=== PATIENT | female | born 1930 | race African-American/Black ===

== ENCOUNTER 2018-09-28 15:59 | Inpatient (IN) ==
[2018-09-28 18:52] LABS: Basophils % 0.1 % (0.0-0.8); Eosinophils # 0.1 10*3/uL (0.0-0.87); Eosinophils % 0.7 % (0.00-10.9); Immature Granulocytes % 0.5 %; Immature Granulocytes Absolute 0.04 #; Lymphocytes # 0.8 10*3/uL (1.4-4.0); Mean Corpuscular Hemoglobin 28 PG (27-34); Mean Corpuscular Volume 92.3 FL (87-102); Mean Platelet Volume 9.5 FL (9.6-12.0); Monocytes # 0.3 10*3/uL (0.11-0.8); Monocytes % 3.9 % (1.7-12.7); Neutrophils # 6.5 10*3/uL (1.4-7.4); Neutrophils % 84.8 % (38.7-73.9); Platelet Count 255 T/CUMM (130-400); Red Blood Count 1.95 MC/CUMM (3.8-5.5); Red Cell Distribution Width 14.5 % (9.3-17.3); White Blood Count 7.7 T/CUMM (4-12)
[2018-09-28 18:56] LABS: Hemoglobin 5.4 GM/DL (12.0-16.0)
[2018-09-28 19:00] LABS: PT Patient Result 11.3 SECS
[2018-09-28 19:10] LABS: Alanine Aminotransferase 16 U/L (13-56); Albumin 2.9 G/DL (3.4-5.0); Alkaline Phosphatase 58 U/L (45-117); Aspartate Amino Transferase 14 U/L (0-37); Bilirubin,Total < 0.39 MG/DL (0.2-1.0); Blood Urea Nitrogen 82 MG/DL (7-18); Glucose 97 MG/DL (74-106); Osmolality,Calculated 301.5 MOS/KG (273-304); Sodium 139 MMOL/L (136-145); Total Protein 6.7 G/DL (6.4-8.3)
[2018-09-28 19:13] LABS: Potassium 6.2 MMOL/L (3.5-5.1)
[2018-09-28] MEDS ORDERED: DEXTROSE 50% 25 GM/50 ML VIAL IV STA (19:20)
[2018-09-28] MEDS ORDERED: ALBUTEROL NEB SOLN 5 MG/ML 20 ML/BOTTLE CONT NEB STA (19:20)
[2018-09-28] MEDS ORDERED: CALCIUM CHLORIDE 1,000 MG/10 ML SYRINGE IV STA (19:20)
[2018-09-28] MEDS ORDERED: INSULIN REGULAR 100 UNIT/ML IV STA (19:21)
[2018-09-28] MEDS ORDERED: ONDANSETRON 4 MG/2 ML VIAL IV STA (19:26)
[2018-09-28 19:45] LABS: Troponin I < 0.015 NG/ML (0.00-0.045)
[2018-09-28] MEDS ORDERED: DEXTROSE 50% 25 GM/50 ML SYRINGE IV ONE (20:00)
[2018-09-28] MEDS ORDERED: SODIUM BICARBONATE 50 MEQ/50 ML SYRINGE IV ONE (20:07)
[2018-09-28] MEDS: SODIUM BICARB INJ 50 MEQ in DEXTROSE 5% 1,000 ML IV SCH (20:18)
[2018-09-28] MEDS ORDERED: ONDANSETRON 4 MG/2 ML VIAL IV PRN (20:53)
[2018-09-28] MEDS ORDERED: ACETAMINOPHEN 325 MG TABLET PO PRN (20:53)
[2018-09-28] MEDS ORDERED: NICOTINE 21 MG/24 HR PATCH TRANSDERM PRN (20:53)
[2018-09-28] MEDS ORDERED: diphenhydrAMINE CAP 25 MG CAPSULE PO PRN (20:53)
[2018-09-28] MEDS ORDERED: guaiFENesin/DM ER 600-30 MG TABLET PO PRN (20:53)
[2018-09-28] MEDS ORDERED: BISACODYL 5 MG TABLET PO PRN (20:53)
[2018-09-28] MEDS ORDERED: MORPHINE 4 MG/1 ML VIAL IV PRN (20:53)
[2018-09-28 21:50] LABS: Thyroid Stimulating Hormone 1.53 uIU/ml (0.358-3.74)
[2018-09-28 21:52] LABS: Folate > 24.0 NG/ML (5.4-24.0); Vitamin B12 1455 PG/ML (211-911)
[2018-09-28] MEDS: SODIUM CHLORIDE 0.9% 1,000 ML IV SCH (23:00)
[2018-09-28] MEDS: SODIUM POLYSTYRENE SULFATE 15 GM/60 ML BOTTLE PO SCH (23:01)
[2018-09-28 23:43] LABS: Basophils % 0.1 % (0.0-0.8); Eosinophils % 0.3 % (0.00-10.9); Immature Granulocytes % 0.7 %; Immature Granulocytes Absolute 0.05 #; Lymphocytes # 0.7 10*3/uL (1.4-4.0); Lymphocytes % 10.6 % (21.3-54.2); Mean Corpuscular HGB Conc 29.8 GM/DL (32-36); Mean Corpuscular Hemoglobin 28 PG (27-34); Mean Platelet Volume 10.1 FL (9.6-12.0); Monocytes # 0.3 10*3/uL (0.11-0.8); Monocytes % 4.8 % (1.7-12.7); Neutrophils # 5.7 10*3/uL (1.4-7.4); Neutrophils % 83.5 % (38.7-73.9); Platelet Count 236 T/CUMM (130-400); Red Blood Count 1.82 MC/CUMM (3.8-5.5); Red Cell Distribution Width 14.7 % (9.3-17.3); White Blood Count 6.9 T/CUMM (4-12)
[2018-09-28 23:51] LABS: Hematocrit 17.1 VOL% (35.7-47.0); Hemoglobin 5.1 GM/DL (12.0-16.0)
[2018-09-29 00:55] LABS: Sedimentation Rate-Westergren 114 MM/HR (0-30)
[2018-09-29] MEDS ORDERED: SODIUM CHLORIDE 0.9% 500 ML IV STA (01:53)
[2018-09-29 02:13] LABS: Platelet Estimate Adequate
[2018-09-29 02:15] LABS: Polychromasia Few
[2018-09-29] MEDS ORDERED: SODIUM CHLORIDE 0.9% 1,000 ML IV PRN (02:49)
[2018-09-29 04:40] LABS: Basophils % 0.2 % (0.0-0.8); Eosinophils % 0.6 % (0.00-10.9); Immature Granulocytes % 0.6 %; Immature Granulocytes Absolute 0.03 #; Lymphocytes # 0.6 10*3/uL (1.4-4.0); Lymphocytes % 12.3 % (21.3-54.2); Mean Corpuscular HGB Conc 30.5 GM/DL (32-36); Mean Corpuscular Hemoglobin 29 PG (27-34); Mean Corpuscular Volume 94.1 FL (87-102); Mean Platelet Volume 10.1 FL (9.6-12.0); Monocytes # 0.3 10*3/uL (0.11-0.8); Monocytes % 6.4 % (1.7-12.7); Neutrophils % 79.9 % (38.7-73.9); Platelet Count 225 T/CUMM (130-400); Red Blood Count 1.85 MC/CUMM (3.8-5.5); Red Cell Distribution Width 14.5 % (9.3-17.3)
[2018-09-29 04:43] LABS: Hemoglobin 5.3 GM/DL (12.0-16.0)
[2018-09-29 04:44] LABS: Hematocrit 17.4 VOL% (35.7-47.0)
[2018-09-29 05:00] LABS: Albumin 2.8 G/DL (3.4-5.0); Bilirubin,Total 0.4 MG/DL (0.2-1.0); Calcium 8.6 MG/DL (8.5-10.1); Osmolality,Calculated 306.3 MOS/KG (273-304); Total Protein 6.4 G/DL (6.4-8.3)
[2018-09-29] MEDS: SODIUM POLYSTYRENE SULFATE 15 GM/60 ML BOTTLE PO SCH ×2 (06:10→13:30)
[2018-09-29] MEDS: SODIUM BICARB INJ 50 MEQ in DEXTROSE 5% 1,000 ML IV SCH (06:17)
[2018-09-29 08:31] LABS: Hemoglobin A1 (Alkaline) 60.6 % (96.5-98.5); Hemoglobin A2 (Alkaline) 1.6 % (1.5-3.5)
[2018-09-29 08:55] LABS: Hemoglobin S (Alkaline) 37.8 %
[2018-09-29 10:14] LABS: Hematocrit 24.5 VOL% (35.7-47.0); Hemoglobin 7.4 GM/DL (12.0-16.0)
[2018-09-29] MEDS ORDERED: FUROSEMIDE 40 MG/4 ML VIAL IV ONE (12:15)
[2018-09-29] MEDS: SODIUM CHLORIDE 0.9% 1,000 ML IV SCH (13:30)
[2018-09-29] MEDS: PANTOPRAZOLE 40 MG TABLET PO SCH (13:31)
[2018-09-29] MEDS ORDERED: hydrALAZINE 10 MG TABLET PO PRN (15:15)
[2018-09-29] MEDS: amLODIPine 5 MG TABLET PO SCH (15:24)
[2018-09-29] MEDS: DOCUSATE/SENNA 50-8.6 MG TABLET PO SCH (20:35)
[2018-09-29 21:57] LABS: Hematocrit 32.5 VOL% (35.7-47.0); Hemoglobin 10.3 GM/DL (12.0-16.0)
[2018-09-30] MEDS: SODIUM CHLORIDE 0.9% 1,000 ML IV SCH (04:21)
[2018-09-30 05:02] LABS: Basophils % 0.4 % (0.0-0.8); Eosinophils # 0.2 10*3/uL (0.0-0.87); Hemoglobin 10.2 GM/DL (12.0-16.0); Immature Granulocytes % 0.4 %; Immature Granulocytes Absolute 0.02 #; Lymphocytes # 0.7 10*3/uL (1.4-4.0); Mean Corpuscular HGB Conc 31.9 GM/DL (32-36); Mean Corpuscular Hemoglobin 28 PG (27-34); Mean Corpuscular Volume 87.7 FL (87-102); Mean Platelet Volume 10.1 FL (9.6-12.0); Monocytes # 0.4 10*3/uL (0.11-0.8); Neutrophils # 3.8 10*3/uL (1.4-7.4); Neutrophils % 75.2 % (38.7-73.9); Platelet Count 192 T/CUMM (130-400); Red Blood Count 3.65 MC/CUMM (3.8-5.5); Red Cell Distribution Width 14.5 % (9.3-17.3)
[2018-09-30 05:21] LABS: Calcium 7.4 MG/DL (8.5-10.1); Osmolality,Calculated 294.3 MOS/KG (273-304); Potassium 4.8 MMOL/L (3.5-5.1)
[2018-09-30 07:47] VITALS: BP 142/70
[2018-09-30] MEDS ORDERED: POLYETHYLENE GLYCOL POWDER 17 GM PACK PO SCH (09:00)
[2018-09-30] MEDS: amLODIPine 5 MG TABLET PO SCH (09:10)
[2018-09-30] MEDS: DOCUSATE/SENNA 50-8.6 MG TABLET PO SCH (09:10)
[2018-09-30] MEDS: PANTOPRAZOLE 40 MG TABLET PO SCH (09:11)
== END 2018-09-30 13:08 | disposition home health service (06) | DRG 683 ==
LOC: N.ED 15:59 → N.EDINP 20:53 → N.TELES 09-29 09:29
PROVIDERS: ADMIT Internal Medicine; ATTEND Internal Medicine

== ENCOUNTER 2019-03-01 18:58 | Inpatient (IN) ==
[2019-03-01] MEDS ORDERED: DICYCLOMINE 20 MG/2 ML AMP IM ONE (19:24)
[2019-03-01 19:42] LABS: Basophils % 0.2 % (0.0-0.8); Eosinophils % 0.2 % (0.00-10.9); Hematocrit 21.8 VOL% (35.7-47.0); Hemoglobin 7.3 GM/DL (12.0-16.0); Immature Granulocytes % 0.2 %; Immature Granulocytes Absolute 0.01 #; Lymphocytes # 0.4 10*3/uL (1.4-4.0); Lymphocytes % 8.3 % (21.3-54.2); Mean Corpuscular HGB Conc 33.5 GM/DL (32-36); Mean Corpuscular Volume 90.1 FL (87-102); Mean Platelet Volume 9.6 FL (9.6-12.0); Neutrophils % 87.1 % (38.7-73.9); Platelet Count 141 T/CUMM (130-400); Red Blood Count 2.42 MC/CUMM (3.8-5.5)
[2019-03-01 20:02] LABS: Alanine Aminotransferase 13 U/L (13-56); Alkaline Phosphatase 59 U/L (45-117); Amylase 134 U/L (25-115); Aspartate Amino Transferase 18 U/L (0-37); Blood Urea Nitrogen 68 MG/DL (7-18); Estimated Glom Filtration Rate 9 ML/MIN; Glucose 107 MG/DL (74-106); Osmolality,Calculated 281.7 MOS/KG (273-304); Total Protein 7.6 G/DL (6.4-8.3); Troponin I < 0.015 NG/ML (0.00-0.045)
[2019-03-01] MEDS ORDERED: MORPHINE 4 MG/1 ML VIAL IV PRN (21:46)
[2019-03-01] MEDS ORDERED: NICOTINE 21 MG/24 HR PATCH TRANSDERM PRN (21:46)
[2019-03-01] MEDS ORDERED: diphenhydrAMINE CAP 25 MG CAPSULE PO PRN (21:46)
[2019-03-01] MEDS ORDERED: LATANOPROST RIGHT EYE SCH (22:43)
[2019-03-01] MEDS: SODIUM CHLORIDE 0.9% 1,000 ML IV SCH (23:08)
[2019-03-02] MEDS: DICYCLOMINE 20 MG/2 ML AMP IM SCH ×2 (00:12→05:46)
[2019-03-02 04:19] LABS: Basophils % 0.2 % (0.0-0.8); Hematocrit 19.7 VOL% (35.7-47.0); Hemoglobin 6.5 GM/DL (12.0-16.0); Immature Granulocytes % 0.2 %; Immature Granulocytes Absolute 0.01 #; Lymphocytes # 0.5 10*3/uL (1.4-4.0); Lymphocytes % 10.2 % (21.3-54.2); Mean Corpuscular Volume 89.5 FL (87-102); Mean Platelet Volume 9.8 FL (9.6-12.0); Monocytes % 8.7 % (1.7-12.7); Neutrophils % 80.7 % (38.7-73.9); Platelet Count 122 T/CUMM (130-400); White Blood Count 5.3 T/CUMM (4-12)
[2019-03-02 05:04] LABS: Albumin 3.4 G/DL (3.4-5.0); Bilirubin,Total 0.8 MG/DL (0.2-1.0); Calcium 8.6 MG/DL (8.5-10.1); Osmolality,Calculated 285.4 MOS/KG (273-304); Total Protein 6.3 G/DL (6.4-8.3)
[2019-03-02 05:55] LABS: % Iron Saturation 9.6 % (18-50); Ferritin 135.5 ng/ml (8-252)
[2019-03-02] MEDS ORDERED: DICYCLOMINE 10 MG CAPSULE PO SCH (06:00)
[2019-03-02] MEDS: SODIUM CHLORIDE 0.9% 1,000 ML IV SCH ×2 (08:36→18:34)
[2019-03-02] MEDS: amLODIPine 5 MG TABLET PO SCH (08:37)
[2019-03-02] MEDS: CYPROHEPTADINE 4 MG TABLET PO SCH ×3 (08:37→18:16)
[2019-03-02] MEDS: DICYCLOMINE 10 MG CAPSULE PO SCH ×3 (08:37→18:15)
[2019-03-02] MEDS: FAMOTIDINE 20 MG/2 ML VIAL IV SCH (08:38)
[2019-03-02] MEDS ORDERED: hydroCHLOROthiazide 12.5 MG CAPSULE PO SCH (09:00)
[2019-03-02] MEDS ORDERED: DONEPEZIL 5 MG TABLET PO SCH (09:00)
[2019-03-02] MEDS ORDERED: LACTULOSE 20 GM/30 ML UDCUP PO SCH (09:00)
[2019-03-02] MEDS ORDERED: Timolol Maleate [Timolol Maleate] 1 DROP RIGHT EYE SCH (09:00)
[2019-03-02] MEDS ORDERED: SODIUM CHLORIDE 0.9% 1,000 ML IV PRN (09:17)
[2019-03-02] MEDS ORDERED: DOCUSATE SODIUM 100 MG CAPSULE PO SCH (09:30)
[2019-03-02] MEDS: ONDANSETRON 4 MG/2 ML VIAL IV PRN ×2 (13:31→18:15)
[2019-03-02] MEDS ORDERED: POLYETHYLENE GLYCOL POWDER 17 GM PACK PO SCH (15:00)
[2019-03-02] MEDS ORDERED: METOCLOPRAMIDE 10 MG/2 ML VIAL IV PRN (18:41)
[2019-03-02] MEDS: BRIMONIDINE/TIMOLOL OPH SOLN 5 ML BOTTLE BOTH EYES SCH (20:21)
[2019-03-02] MEDS: CYCLOPENTOLATE 1% OPH SOLN 2 ML BOTTLE RIGHT EYE SCH (20:22)
[2019-03-02] MEDS: MEROPENEM 500 MG in SODIUM CHLORIDE 0.9% 100 ML IV SCH (20:22)
[2019-03-02] MEDS: prednisoLONE ACETATE 1% OPH SUSP 5 ML BOTTLE RIGHT EYE SCH (20:22)
[2019-03-02] MEDS: DEXT 5% NACL 0.45% KCL 20 MEQ 20 MEQ/1,000 ML BAG IV SCH (20:31)
[2019-03-02] MEDS: LATANOPROST 0.005% OPH SOLN 2.5 ML BOTTLE BOTH EYES SCH (20:49)
[2019-03-03 06:05] LABS: Basophils % 0.2 % (0.0-0.8); Eosinophils % 0.2 % (0.00-10.9); Hematocrit 25.4 VOL% (35.7-47.0); Hemoglobin 8.6 GM/DL (12.0-16.0); Immature Granulocytes % 0.3 %; Immature Granulocytes Absolute 0.02 #; Lymphocytes # 0.5 10*3/uL (1.4-4.0); Mean Corpuscular HGB Conc 33.9 GM/DL (32-36); Mean Corpuscular Volume 89.4 FL (87-102); Mean Platelet Volume 9.8 FL (9.6-12.0); Monocytes % 5.4 % (1.7-12.7); Neutrophils % 85.9 % (38.7-73.9); Platelet Count 117 T/CUMM (130-400); Red Blood Count 2.84 MC/CUMM (3.8-5.5); Red Cell Distribution Width 13.3 % (9.3-17.3); White Blood Count 6.5 T/CUMM (4-12)
[2019-03-03 06:21] LABS: Osmolality,Calculated 282.4 MOS/KG (273-304)
[2019-03-03 06:36] LABS: Thyroid Stimulating Hormone 1.65 uIU/ml (0.358-3.74)
[2019-03-03 06:40] LABS: Folate 18.9 NG/ML (5.4-24.0); Vitamin B12 880 PG/ML (211-911)
[2019-03-03 07:10] LABS: Sedimentation Rate-Westergren 37 MM/HR (0-30)
[2019-03-03] MEDS: MEROPENEM 500 MG in SODIUM CHLORIDE 0.9% 100 ML IV SCH ×2 (08:11→21:37)
[2019-03-03] MEDS: prednisoLONE ACETATE 1% OPH SUSP 5 ML BOTTLE RIGHT EYE SCH ×4 (08:49→21:41)
[2019-03-03] MEDS: CYCLOPENTOLATE 1% OPH SOLN 2 ML BOTTLE RIGHT EYE SCH ×3 (08:50→21:39)
[2019-03-03] MEDS: BRIMONIDINE/TIMOLOL OPH SOLN 5 ML BOTTLE BOTH EYES SCH ×2 (08:51→21:38)
[2019-03-03] MEDS: FAMOTIDINE 20 MG/2 ML VIAL IV SCH (08:51)
[2019-03-03] MEDS: amLODIPine 5 MG TABLET PO SCH (08:52)
[2019-03-03] MEDS: IRON SUCROSE 200 MG in SODIUM CHLORIDE 0.9% 100 ML IV SCH (09:09)
[2019-03-03] MEDS: DOCUSATE SODIUM 100 MG CAPSULE PO SCH ×2 (13:41→21:32)
[2019-03-03] MEDS: LACTULOSE 20 GM/30 ML UDCUP PO SCH ×2 (16:03→21:33)
[2019-03-03 16:32] LABS: Apearance,Urine CLEAR (Clear); Bilirubin,Urine Negative (Negative); Blood, Urine Negative (Negative); Glucose,Urine (UA) Negative (Negative); Ketones,Urine Negative (Negative); Nitrite,Urine Negative (Negative); Protein,Urine Negative; RBC,Urine 1 /HPF (0-4); Squamous Epithelial Cell,Urine Occasional /HPF (0-10); Urine Color Yellow (Yellow); Urine Specific Gravity 1.009 (1.001-1.035); Urine Urobilinogen < 2.0 EU/DL (0.2-1.0); WBC,Urine 5 /HPF (0-6)
[2019-03-03] MEDS: LATANOPROST 0.005% OPH SOLN 2.5 ML BOTTLE BOTH EYES SCH (21:42)
[2019-03-04 04:33] LABS: Basophils % 0.2 % (0.0-0.8); Eosinophils # 0.1 10*3/uL (0.0-0.87); Eosinophils % 1.4 % (0.00-10.9); Hematocrit 24.6 VOL% (35.7-47.0); Hemoglobin 8.4 GM/DL (12.0-16.0); Immature Granulocytes % 0.3 %; Immature Granulocytes Absolute 0.02 #; Lymphocytes # 0.5 10*3/uL (1.4-4.0); Lymphocytes % 7.8 % (21.3-54.2); Mean Corpuscular HGB Conc 34.1 GM/DL (32-36); Mean Corpuscular Volume 88.8 FL (87-102); Mean Platelet Volume 9.7 FL (9.6-12.0); Monocytes % 6.1 % (1.7-12.7); Neutrophils % 84.2 % (38.7-73.9); Platelet Count 124 T/CUMM (130-400); Red Blood Count 2.77 MC/CUMM (3.8-5.5); Red Cell Distribution Width 13.2 % (9.3-17.3); White Blood Count 6.4 T/CUMM (4-12)
[2019-03-04] MEDS: DEXT 5% NACL 0.45% KCL 20 MEQ 20 MEQ/1,000 ML BAG IV SCH (08:11)
[2019-03-04] MEDS: MEROPENEM 500 MG in SODIUM CHLORIDE 0.9% 100 ML IV SCH (08:14)
[2019-03-04] MEDS: BRIMONIDINE/TIMOLOL OPH SOLN 5 ML BOTTLE BOTH EYES SCH ×2 (08:16→20:12)
[2019-03-04] MEDS: prednisoLONE ACETATE 1% OPH SUSP 5 ML BOTTLE RIGHT EYE SCH ×4 (08:16→20:13)
[2019-03-04] MEDS: LACTULOSE 20 GM/30 ML UDCUP PO SCH ×2 (08:25→20:14)
[2019-03-04] MEDS: CYCLOPENTOLATE 1% OPH SOLN 2 ML BOTTLE RIGHT EYE SCH ×3 (08:25→20:13)
[2019-03-04] MEDS: FAMOTIDINE 20 MG/2 ML VIAL IV SCH (08:26)
[2019-03-04] MEDS: amLODIPine 5 MG TABLET PO SCH (08:26)
[2019-03-04] MEDS: DOCUSATE SODIUM 100 MG CAPSULE PO SCH ×2 (08:28→20:13)
[2019-03-04] MEDS: IRON SUCROSE 200 MG in SODIUM CHLORIDE 0.9% 100 ML IV SCH (09:00)
[2019-03-04] MEDS: POTASSIUM CHLORIDE 20 MEQ TABLET PO PRN ×3 (09:42→14:10)
[2019-03-04] MEDS ORDERED: POTASSIUM BICARB EFFERVESCENT 25 MEQ TABLET PO ONE (14:54)
[2019-03-04] MEDS: MIRTAZAPINE 15 MG TABLET PO SCH (20:13)
[2019-03-04] MEDS: LATANOPROST 0.005% OPH SOLN 2.5 ML BOTTLE BOTH EYES SCH (20:13)
[2019-03-05 04:35] LABS: Basophils % 0.1 % (0.0-0.8); Eosinophils # 0.1 10*3/uL (0.0-0.87); Eosinophils % 0.9 % (0.00-10.9); Hematocrit 22.9 VOL% (35.7-47.0); Hemoglobin 7.7 GM/DL (12.0-16.0); Immature Granulocytes % 0.4 %; Immature Granulocytes Absolute 0.03 #; Lymphocytes # 0.6 10*3/uL (1.4-4.0); Lymphocytes % 8.1 % (21.3-54.2); Mean Corpuscular HGB Conc 33.6 GM/DL (32-36); Mean Corpuscular Volume 88.8 FL (87-102); Monocytes % 4.8 % (1.7-12.7); Neutrophils % 85.7 % (38.7-73.9); Platelet Count 113 T/CUMM (130-400); Red Blood Count 2.58 MC/CUMM (3.8-5.5); Red Cell Distribution Width 13.6 % (9.3-17.3); White Blood Count 6.9 T/CUMM (4-12)
[2019-03-05 04:59] LABS: Calcium 7.9 MG/DL (8.5-10.1)
[2019-03-05] MEDS: DEXT 5% NACL 0.45% KCL 20 MEQ 20 MEQ/1,000 ML BAG IV SCH ×2 (07:07→09:16)
[2019-03-05] MEDS ORDERED: PROPOFOL 200 MG/20 ML VIAL IV ONE (09:00)
[2019-03-05] MEDS ORDERED: LIDOCAINE 2% 5 ML VIAL ONE (09:00)
[2019-03-05] MEDS ORDERED: ETOMIDATE 20 MG/10 ML VIAL IV ONE (09:00)
[2019-03-05] MEDS: IRON SUCROSE 200 MG in SODIUM CHLORIDE 0.9% 100 ML IV SCH (09:14)
[2019-03-05] MEDS: CYCLOPENTOLATE 1% OPH SOLN 2 ML BOTTLE RIGHT EYE SCH ×3 (09:15→20:33)
[2019-03-05] MEDS: BRIMONIDINE/TIMOLOL OPH SOLN 5 ML BOTTLE BOTH EYES SCH ×2 (09:15→20:32)
[2019-03-05] MEDS: amLODIPine 5 MG TABLET PO SCH (09:15)
[2019-03-05] MEDS: prednisoLONE ACETATE 1% OPH SUSP 5 ML BOTTLE RIGHT EYE SCH ×4 (09:15→20:33)
[2019-03-05] MEDS: LACTULOSE 20 GM/30 ML UDCUP PO SCH ×2 (09:17→20:29)
[2019-03-05] MEDS: DOCUSATE SODIUM 100 MG CAPSULE PO SCH ×2 (09:18→20:29)
[2019-03-05] MEDS: FAMOTIDINE 20 MG/2 ML VIAL IV SCH (09:31)
[2019-03-05] MEDS: MIRTAZAPINE 15 MG TABLET PO SCH (20:29)
[2019-03-05] MEDS: LATANOPROST 0.005% OPH SOLN 2.5 ML BOTTLE BOTH EYES SCH (20:32)
[2019-03-06 03:07] LABS: Basophils % 0.2 % (0.0-0.8); Eosinophils # 0.1 10*3/uL (0.0-0.87); Eosinophils % 2.2 % (0.00-10.9); Hematocrit 24.3 VOL% (35.7-47.0); Hemoglobin 8.1 GM/DL (12.0-16.0); Immature Granulocytes % 0.9 %; Immature Granulocytes Absolute 0.04 #; Lymphocytes # 0.7 10*3/uL (1.4-4.0); Lymphocytes % 14.4 % (21.3-54.2); Mean Corpuscular HGB Conc 33.3 GM/DL (32-36); Mean Corpuscular Volume 90.3 FL (87-102); Mean Platelet Volume 10.8 FL (9.6-12.0); Monocytes % 7.9 % (1.7-12.7); Neutrophils % 74.4 % (38.7-73.9); Platelet Count 124 T/CUMM (130-400); Red Blood Count 2.69 MC/CUMM (3.8-5.5); Red Cell Distribution Width 13.8 % (9.3-17.3); White Blood Count 4.6 T/CUMM (4-12)
[2019-03-06 03:28] LABS: Calcium 7.7 MG/DL (8.5-10.1)
[2019-03-06] MEDS: DOCUSATE SODIUM 100 MG CAPSULE PO SCH ×2 (08:26→23:45)
[2019-03-06] MEDS: amLODIPine 5 MG TABLET PO SCH (08:26)
[2019-03-06] MEDS: LACTULOSE 20 GM/30 ML UDCUP PO SCH ×2 (08:27→23:44)
[2019-03-06] MEDS: prednisoLONE ACETATE 1% OPH SUSP 5 ML BOTTLE RIGHT EYE SCH ×4 (08:31→21:05)
[2019-03-06] MEDS: CYCLOPENTOLATE 1% OPH SOLN 2 ML BOTTLE RIGHT EYE SCH ×3 (08:31→21:04)
[2019-03-06] MEDS: BRIMONIDINE/TIMOLOL OPH SOLN 5 ML BOTTLE BOTH EYES SCH ×2 (08:31→21:07)
[2019-03-06] MEDS: IRON SUCROSE 200 MG in SODIUM CHLORIDE 0.9% 100 ML IV SCH (09:54)
[2019-03-06] MEDS: FAMOTIDINE 20 MG/2 ML VIAL IV SCH (09:55)
[2019-03-06] MEDS: DEXT 5% NACL 0.45% KCL 20 MEQ 20 MEQ/1,000 ML BAG IV SCH ×2 (09:58→23:00)
[2019-03-06 10:34] LABS: Hemoglobin A1 (Alkaline) 77.8 % (96.5-98.5); Hemoglobin A2 (Alkaline) 2.6 % (1.5-3.5)
[2019-03-06 10:41] LABS: Hemoglobin S (Alkaline) 19.6 %
[2019-03-06] MEDS: FLUCONAZOLE 200 MG TABLET PO SCH (13:40)
[2019-03-06] MEDS: MIRTAZAPINE 15 MG TABLET PO SCH (20:59)
[2019-03-06] MEDS: LATANOPROST 0.005% OPH SOLN 2.5 ML BOTTLE BOTH EYES SCH (21:04)
[2019-03-07 05:08] LABS: Basophils % 0.2 % (0.0-0.8); Eosinophils # 0.1 10*3/uL (0.0-0.87); Hematocrit 23.1 VOL% (35.7-47.0); Hemoglobin 7.6 GM/DL (12.0-16.0); Immature Granulocytes % 1.5 %; Immature Granulocytes Absolute 0.07 #; Lymphocytes # 0.6 10*3/uL (1.4-4.0); Lymphocytes % 13.3 % (21.3-54.2); Mean Corpuscular HGB Conc 32.9 GM/DL (32-36); Mean Corpuscular Volume 89.9 FL (87-102); Mean Platelet Volume 9.8 FL (9.6-12.0); Monocytes % 9.8 % (1.7-12.7); Neutrophils % 73.2 % (38.7-73.9); Platelet Count 114 T/CUMM (130-400); Red Blood Count 2.57 MC/CUMM (3.8-5.5); Red Cell Distribution Width 13.8 % (9.3-17.3); White Blood Count 4.6 T/CUMM (4-12)
[2019-03-07 05:14] LABS: Calcium 7.4 MG/DL (8.5-10.1); Osmolality,Calculated 282.7 MOS/KG (273-304)
[2019-03-07] MEDS: IRON SUCROSE 200 MG in SODIUM CHLORIDE 0.9% 100 ML IV SCH (09:03)
[2019-03-07] MEDS: FAMOTIDINE 20 MG/2 ML VIAL IV SCH (09:04)
[2019-03-07] MEDS: DOCUSATE SODIUM 100 MG CAPSULE PO SCH (09:13)
[2019-03-07] MEDS: FLUCONAZOLE 200 MG TABLET PO SCH (09:14)
[2019-03-07] MEDS: amLODIPine 5 MG TABLET PO SCH (09:14)
[2019-03-07] MEDS: LACTULOSE 20 GM/30 ML UDCUP PO SCH (09:15)
[2019-03-07] MEDS: BRIMONIDINE/TIMOLOL OPH SOLN 5 ML BOTTLE BOTH EYES SCH (09:18)
[2019-03-07] MEDS: CYCLOPENTOLATE 1% OPH SOLN 2 ML BOTTLE RIGHT EYE SCH (09:18)
[2019-03-07] MEDS: prednisoLONE ACETATE 1% OPH SUSP 5 ML BOTTLE RIGHT EYE SCH (09:18)
[2019-03-07 10:40] VITALS: BP 123/89
[2019-03-07] MEDS ORDERED: INFLUENZA VIRUS VACCINE 0.5 ML SYRINGE IM ONE (11:22)
== END 2019-03-07 12:39 | disposition home health service (06) | DRG 812 ==
LOC: N.4E 18:58 → N.ED 18:58 → SUATTDRO 18:59 → INTOOBSV 21:46 → N.EDINP 21:46 → N.4E 22:19 → SUATTDRO 03-02 18:45
PROVIDERS: ADMIT Internal Medicine; ATTEND Emergency Medicine